=== PATIENT | female | born 1960 | race Caucasian/White ===

== ENCOUNTER 2024-03-04 06:44 | Emergency (ER) | payer OTHER, SELFPAY ==
[2024-03-04 06:49] VITALS: BP 152/91; PULSE 78; TEMP 36.7; O2SAT 96; BMI 29.1
--- NOTE | 2024-03-04 07:01 | ED.ABDPAIN1 ---
HPI - Abdominal Pain General Chief Complaint: Abdominal Pain Stated Complaint: ABD PAIN Time Seen by Provider: 03/04/24 07:01 Source: patient Mode of arrival: walk-in Limitations: no limitations History of Present Illness HPI narrative: This patient's with her complaining of abdominal pain. It woke her up approximately 2 hours ago when she was sleeping in her RV. They are traveling from [place] to [place]. She has had a previous cholecystectomy. She has not had any history of ovarian cyst or pelvic pathology and she gets regular exams. She has no history of diverticular disease. No history of kidney disease or kidney stones. She has not had any back or flank pain. She has not had any fever. She has not taken any antibiotics. The pain is letting up a little bit now. She does not have any protracted vomiting. She had some diarrhea yesterday. She has no urinary symptoms such as frequency urgency dysuria or hematuria. Related Data Home Medications ?Medication ?Instructions ?Recorded ?Confirmed amlodipine 2.5 mg tablet 2.5 mg PO DAILY 03/04/24 03/04/24 meloxicam 7.5 mg tablet 7.5 mg PO DAILY PRN pain 03/04/24 03/04/24 pravastatin 40 mg tablet 40 mg PO DAILY 03/04/24 03/04/24 Allergies Allergy/AdvReac Type Severity Reaction Status Date / Time No Known Drug Allergies Allergy Verified 03/04/24 06:49 Exam Narrative Exam Narrative: Awake alert very pleasant afebrile sitting up in a comfortable position. Overall her health looks excellent. Mucous memories are moist conjunctiva is pink. She has no respiratory distress. She complains of no chest discomfort. Examining her abdomen there is good bowel sounds slightly increased. There is no rebound rigidity or peritoneal findings. She has a large incision in the right upper quadrant consistent with her previous cholecystectomy. Then she also has some tenderness to palpation at McBurney's point as well. Otherwise the examination is benign Constitutional Vital Signs, click to edit/add: Last Vital Signs Temp 98.0 F 03/04/24 06:49 Pulse 78 03/04/24 06:49 Resp 18 03/04/24 06:49 BP 152/91 H 03/04/24 06:49 Pulse Ox 96 03/04/24 06:49 O2 Del Method Room Air 03/04/24 06:49 Course Vital Signs Vital signs: Vital Signs Temperature 98.0 F 03/04/24 06:49 Pulse Rate 78 03/04/24 06:49 Respiratory Rate 18 03/04/24 06:49 Blood Pressure 152/91 H 03/04/24 06:49 Pulse Oximetry 96 03/04/24 06:49 Oxygen Delivery Method Room Air 03/04/24 06:49 Temperature 98.0 F 03/04/24 06:49 Pulse Rate 78 03/04/24 06:49 Respiratory Rate 18 03/04/24 06:49 Blood Pressure 152/91 H 03/04/24 06:49 Pulse Oximetry 96 03/04/24 06:49 Oxygen Delivery Method Room Air 03/04/24 06:49 MDM - Abdominal Pain MDM Narrative Medical decision making narrative: This patient's white blood cell count comes back normal with slight increase in lymphocytes. The CT scan of the abdomen did not show any acute findings. Specifically the appendix was normal. Pelvic organs appear normal but there is some inflammatory changes of the small bowel and that would be consistent with her little bit of her symptomatic GI disturbance as described above. At this stage we will place her on clear fluids. I will give her prescription for antibiotics until the culture the urine is back but it is somewhat contaminated urine and she is without any symptoms at all. Discharge Plan Discharge Stand Alone Forms: Portal Instructions Chief Complaint: Abdominal Pain Clinical Impression: Gastroenteritis Patient Disposition: Home, Self-Care Time of Disposition Decision: 09:08 Prescriptions / Home Meds: No Action amlodipine 2.5 mg tablet 2.5 mg PO DAILY pravastatin 40 mg tablet 40 mg PO DAILY meloxicam 7.5 mg tablet 7.5 mg PO DAILY PRN (Reason: pain) Print Language: Palestinian Additional Instructions: If your pain worsens, or you develop a fever get reevaluated. Call us for culture results of the urine on Monday Referrals: Physician,Non-Staff, MD [Primary Care Provider] - 1 week
[2024-03-04 07:17] LABS: Basophils Percent Auto 0.4 % (0.2-2.0); Eosinophils Absolute Auto 0.3 10^3/uL (0.0-0.7); Eosinophils Percent Auto 5.5 % (0.9-7.0); Hematocrit 40.9 % (36.0-48.0); Hemoglobin 13.5 g/dL (12.0-16.0); Immature Granulocytes Abs Auto 0.01 10^3/uL (0.00-0.03); Immature Granulocytes Pct Auto 0.2 % (0.0-0.5); Lymphocytes Absolute Auto 2.1 10^3/uL (1.2-3.8); Lymphocytes Percent Auto 46.5 % (20.5-60.0); Mean Corpuscular Hemoglobin 30.4 pg (26.7-34.0); Mean Corpuscular Volume 92.1 fL (81.0-99.0); Mean Platelet Volume 10.2 fL (9.5-13.5); Monocytes Absolute Auto 0.4 10^3/uL (0.3-0.8); Monocytes Percent Auto 8.2 % (1.7-12.0); Neutrophils Absolute Auto 1.8 10^3/uL (1.4-6.5); Neutrophils Percent Auto 39.2 % (43.0-75.0); Platelet Count 214 10^3/uL (150-450); Red Blood Count 4.44 10^6/uL (4.20-5.40); Red Cell Distribution Width 12.3 % (11.0-15.0); White Blood Count 4.5 10^3/uL (4.0-11.0)
[2024-03-04] MEDS: 0.9 % SODIUM CHLORIDE 1,000 ML 999 ML IV (07:19)
[2024-03-04 07:28] LABS: Alanine Aminotransferase 36 U/L (14-59); Albumin Globulin Ratio 0.9; Albumin Level 3.6 g/dL (3.4-5.0); Alkaline Phosphatase 93 U/L (46-116); Anion Gap 16.1; Aspartate Amino Transferase 28 U/L (15-37); BUN Creatinine Ratio 11.6; Bilirubin Total 0.4 mg/dL (0.2-1.0); Calcium 8.8 mg/dL (8.5-10.1); Carbon Dioxide 24.9 mmol/L (21.0-32.0); Chloride 106 mmol/L (98-107); Estimated GFR (African America >60 (>=60); Estimated GFR (Non-African Ame >60 (>=60); Globulin 3.8 g/dL; Glucose 91 mg/dL (74-106); Sodium 143 mmol/L (136-145); Total Protein 7.4 g/dL (6.4-8.2)
--- NOTE | 2024-03-04 08:02 | CT_ITS ---
[address] [address] Patient Name: TOD HUTCHINSON MRN: [id number] date: 1960 Sex: F Assigned Patient Location: ER Current Patient Location: Accession/Order Number: [id number] Exam Date: 03/04/2024 07:48 Report Date: 03/04/2024 08:48 At the request of: KIMBERLY SHARP Procedure: CT abdomen pelvis w con EXAMINATION: CT abdomen pelvis w con HISTORY: Right lower quadrant pain ; acute COMPARISON: No relevant comparison available. TECHNIQUE: Axial, Coronal, and Sagittal images were obtained without and/or with IV contrast as indicated by examination type. Dose reduction techniques were achieved by using automated exposure control and/or adjustment of mA and/or kV according to patient size and/or use of iterative reconstruction technique. FINDINGS: LUNG BASES: 5 mm opacity/nodule within posterior lateral right lower lobe. LIVER: No enlargement, atrophy, suspicious density, or significant focal lesion. BILIARY: Cholecystectomy. PANCREAS: No lesion, fluid collection, or abnormal duct dilatation. SPLEEN: No enlargement or focal lesion. ADRENALS: No mass or enlargement. KIDNEYS: Benign-appearing left renal cyst. No mass, obstruction, or calcification. BOWEL/MESENTERY: Fluid-filled loop of small bowel within left upper quadrant 3.2 cm in diameter with return to normal caliber both ends of the segment of bowel (1 end within right upper quadrant, the other end within left upper quadrant); no appreciable wall thickening, mass, adhesion, or stricture. Diverticulosis of sigmoid colon without acute inflammatory changes. Normal appendix. AORTA/VASCULAR: No aneurysm or dissection. RETROPERITONEUM: No mass or adenopathy. LYMPH NODES: No adenopathy. URINARY BLADDER: No visible focal wall thickening, lesion, or calculus. PELVIC ORGANS: No visible mass. Pelvic organs appropriate for patient age. ABDOMINAL WALL: No mass or hernia. BONES: Multilevel degenerative disc disease, marked at L4-5. OTHER: Negative. CT/CT abdomen pelvis w con IMPRESSION: 1. Fluid-filled mildly distended loop of small bowel within upper abdomen without appreciable obstruction at either end of the loop, or inflammatory changes. Consider follow-up CT abdomen with oral contrast if symptoms persist. 2. Nonspecific 5 mm nodule within right lower lobe. Consider nonemergent follow-up CT chest in 3 months to document stability. 3. Degenerative disc disease of lumbar spine. Electronically authenticated by: GENARO GARCIA Date: 03/04/2024 08:48
[2024-03-04 08:34] LABS: Bilirubin Urine NEGATIVE (NEGATIVE); Blood Urine NEGATIVE (NEGATIVE); Clarity Urine CLEAR (CLEAR); Color Urine LT. YELLOW (YELLOW); Glucose Urine UA NEGATIVE (NEGATIVE); Ketones Urine NEGATIVE (NEGATIVE); Leukocyte Esterase Urine SMALL (NEGATIVE); Nitrite Urine NEGATIVE (NEGATIVE); Protein Urine NEGATIVE (NEG/TRACE); Urobilinogen Urine 0.2 EU/dL (0.2-1.0); pH Urine 7.5 (5.0-9.0)
[2024-03-04 08:42] LABS: Urine Microscopic Indicated YES
[2024-03-04 08:43] LABS: Bacteria Urine SMALL #/HPF (NONE SEEN); Mucus Urine NONE SEEN (NONE SEEN); RBC Urine NONE SEEN #/HPF (0-2); Squamous Epithelial Cell Urine MODERATE #/LPF (NONE/RARE)
[2024-03-04 08:44] LABS: Urine Culture Indicated YES
== END 2024-03-04 09:27 | disposition home or self-care (01) ==
PROVIDERS: Emergency Provider Emergency Medicine Emergency Medical Services
DX: K52.9 Noninfective gastroenteritis and colitis, unspecified (principal); Z90.49 Acquired absence of other specified parts of digestive tract
CPT/HCPCS: 36415; 74177; 80053; 81001; 85025; 87086; 96360; 99285; Q9967